=== PATIENT | female | born 1975 | race Caucasian/White ===

== ENCOUNTER 2017-06-08 10:30 | Observation (INO) ==
[2017-06-08] MEDS ORDERED: SODIUM CHLORIDE 0.9% 250 ML IV PRN (12:40)
[2017-06-08 13:14] LABS: Albumin 3.8 G/DL (3.4-5.0); Bilirubin,Total 0.6 MG/DL (0.2-1.0); Calcium 9.1 MG/DL (8.5-10.1); Osmolality,Calculated 273.5 MOS/KG (273-304); Potassium 4.1 MMOL/L (3.5-5.1); Total Protein 7.1 G/DL (6.4-8.3)
[2017-06-08 13:16] LABS: Basophils % 0.5 % (0.0-0.8); Eosinophils # 0.1 10*3/uL (0.0-0.87); Eosinophils % 1.3 % (0.00-10.9); Hematocrit 28.5 VOL% (35.7-47.0); Immature Granulocytes Absolute 0.06 #; Lymphocytes # 1.2 10*3/uL (1.4-4.0); Lymphocytes % 19.4 % (21.3-54.2); Mean Corpuscular Hemoglobin 19 PG (27-34); Mean Corpuscular Volume 71.3 FL (87-102); Mean Platelet Volume 11.4 FL (9.6-12.0); Monocytes # 0.4 10*3/uL (0.11-0.8); Monocytes % 6.5 % (1.7-12.7); Neutrophils # 4.4 10*3/uL (1.4-7.4); Neutrophils % 71.3 % (38.7-73.9); Platelet Count 404 T/CUMM (130-400); Red Cell Distribution Width 25.8 % (9.3-17.3); White Blood Count 6.2 T/CUMM (4-12)
[2017-06-08 13:17] LABS: Hemoglobin 7.4 GM/DL (12.0-16.0)
[2017-06-08 13:30] LABS: Hypochromasia 1+; Ovalocytes Slight
[2017-06-08 13:31] LABS: Giant Platelets Few; Platelet Estimate Increased; Polychromasia Slight
--- NOTE | 2017-06-08 13:50 | XRay Report ---
Chest, 2 views History is preop respiratory screening The heart is mildly enlarged. Moderate scoliosis present with convexity to the right. Chronic or developmental rib changes on the left noted No congestive failure or confluent infiltrate is seen Impression: 1. Mild cardiomegaly 2. Moderate scoliosis PROCEDURE INTERPRETED AT [facility] DEPARTMENT OF RADIOLOGY Final Report Signed by: Dr. Joseline Allen
[2017-06-08 13:58] LABS: Apearance,Urine Slightly Hazy (Clear); Bilirubin,Urine Negative (Negative); Blood, Urine Large mg/dL (Negative); Glucose,Urine (UA) Negative (Negative); Ketones,Urine 20 mg/dL (Negative); Mucus,Urine Few /LPF (Occasional); Nitrite,Urine Negative (Negative); Protein,Urine 100 MG/DL; RBC,Urine 1206 /HPF (0-4); Squamous Epithelial Cell,Urine Occasional /HPF (0-10); Urine Color Yellow (Yellow); Urine Specific Gravity 1.023 (1.001-1.035); Urine Urobilinogen < 2.0 EU/DL (0.2-1.0); WBC,Urine 29 /HPF (0-6)
[2017-06-08] MEDS ORDERED: MEPERIDINE 25 MG/1 ML VIAL IV PRN (23:25)
[2017-06-09 06:21] LABS: Basophils % 0.8 % (0.0-0.8); Eosinophils # 0.1 10*3/uL (0.0-0.87); Eosinophils % 2.3 % (0.00-10.9); Immature Granulocytes Absolute 0.05 #; Lymphocytes # 1.1 10*3/uL (1.4-4.0); Lymphocytes % 21.6 % (21.3-54.2); Mean Corpuscular HGB Conc 29.2 GM/DL (32-36); Mean Corpuscular Hemoglobin 21 PG (27-34); Mean Corpuscular Volume 72.9 FL (87-102); Monocytes # 0.5 10*3/uL (0.11-0.8); Monocytes % 8.7 % (1.7-12.7); Neutrophils # 3.4 10*3/uL (1.4-7.4); Neutrophils % 65.6 % (38.7-73.9); Platelet Count 398 T/CUMM (130-400); Red Blood Count 4.94 MC/CUMM (3.8-5.5); Red Cell Distribution Width 26.5 % (9.3-17.3); White Blood Count 5.2 T/CUMM (4-12)
[2017-06-09 06:23] LABS: Hemoglobin 10.6 GM/DL (12.0-16.0)
[2017-06-09 06:33] LABS: Giant Platelets Few; Hypochromasia 1+; Microcytosis Slight; Ovalocytes Slight; Platelet Estimate Adequate
--- NOTE | 2017-06-09 06:58 | EKG Report ---
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
[2017-06-09] MEDS ORDERED: ONDANSETRON 4 MG/2 ML VIAL IV PRN (07:15)
[2017-06-09] MEDS ORDERED: HYDROmorphone 2 MG/1 ML VIAL IV PRN (07:15)
[2017-06-09] MEDS ORDERED: LACTATED RINGERS 1,000 ML IV SCH ×2 (07:30)
[2017-06-09] MEDS ORDERED: PROPOFOL 200 MG/20 ML VIAL IV ONE (08:00)
[2017-06-09] MEDS ORDERED: KETOROLAC 30 MG/1 ML VIAL ONE (08:00)
[2017-06-09] MEDS ORDERED: DEXAMETHASONE 10 MG/1 ML VIAL ONE (08:00)
[2017-06-09] MEDS ORDERED: LIDOCAINE 2% 5 ML VIAL ONE (08:00)
[2017-06-09] MEDS ORDERED: ONDANSETRON 4 MG/2 ML VIAL ONE ×2 (08:00→09:28)
--- NOTE | 2017-06-09 08:53 | History and Physical Update ---
History and Physical Update - History and Physical H&P was reviewed, the patient examined and there: are no changes in the patients condition since last H&P was completed. - Dictation Physical: refer to scanned H&P - Physical Exam Mental Status: alert and oriented Heart: regular rate and rhythm Lung: clear to auscultation Abdomen: within normal limits Vitals: within normal limits
--- NOTE | 2017-06-09 09:07 | Anesthesia Post-Op ---
Anesthesia Post OP - Post Ansesthetic Evaluation Patient seen in post op: Yes Resp: within normal limits CV: within normal limits Mental: within normal limits Temp: within normal limits [id number]: within normal limits Nausea and Vomiting: within normal limits Pain: within normal limits
--- NOTE | 2017-06-09 09:10 | Operative Note ---
Date of procedure: 06/09/17 Pre-op diagnosis: AUB; thickened endometrium on US; anemia secondary to blood loss Post-op diagnosis: same (+ path pending) Procedure: Hysteroscopy D&C; attempted NovaSure endometrial ablation After informed consent was obtained the patient was taken to the OR where she is placed in supine position. Gen. LMA anesthesia was then administered by members anesthesia Department. The patient was then placed in dorsal lithotomy position in El stirrups and sterilely prepped and draped in usual customary fashion. The bladder was catheterized for urine. A bimanual exam was then performed with no adnexal masses palpated. A weighted speculum was placed in the posterior vaginal vault and the anterior cervix was grasped with a single- tooth tenaculum and cervix was cleansed again with Betadine solution. The uterus was sounded to 11 cm. The MyoSure hysteroscope was then passed through the cervical canal into the uterine cavity under direct visualization using normal saline as the distention medium. The entire uterine cavity was explored. No specific abnormalities were identified except for blood clots in vault and a slightly thickened endometrium. The hysteroscope was then removed. Gentle sharp curettage was then carried out by the usual technique until the usual feel of the endometrium. NovaSure ablation was then attempted by the usual technique, however due to vacuum failure the ablation was only functioning for about 18 seconds. Despite multiple procedures to seal the cervix, I was never able to again maintain the seal. NovaSure device was then removed. Hysteroscope was then replaced into the uterine cavity and some ablation of the cavity was noted. The hysteroscope was then removed. The Vaginal vault was cleared of remaining blood and clots. The anterior cervix was noted to be hemostatic. The patient tolerated procedure well and was transferred to the postanesthesia care unit in stable condition. Anesthesia: other (LMA) Surgeon / Physician: Shilpa Farrar Estimated blood loss: other (100cc) Specimens: other (endometrial and endocervical currettings) Condition: stable Disposition: PACU Results - Labs CBC & BMP: 06/09/17 06:01 06/08/17 12:35 Discharge Plan - Discharge Medications No Action Ferrous Sulfate 325 mg PO TID #90 tablet - Follow Up or Referral - Forms/Instructions
[2017-06-09] MEDS ORDERED: SEVOFLURANE 1 UNIT/15 MINUTE INH ONE (09:12)
[2017-06-09] MEDS ORDERED: fentaNYL 100 MCG/2 ML VIAL ONE (09:12)
[2017-06-09] MEDS ORDERED: MIDAZOLAM 2 MG/2 ML VIAL ONE (09:12)
[2017-06-09] MEDS ORDERED: ACETAMINOPHEN 1,000 MG/100 ML VIAL IV ONE (09:12)
--- NOTE | 2017-06-09 09:12 | Discharge Summary ---
Hospital Course - Hospital Course Hospital Course: Pt admitted with symptomatic anemia with AUB for several weeks and recent Hb of 6.7. She was transfused 3 units pRBCs with Hb coming up to 10.6. She underwent Hysteroscopy, D&C with attempted ablation without complication. She was transferred to in stable condition. Discharge Plan - Discharge Data Disposition: Disch To Home/Self Care Condition at Discharge: Stable Discharge Diet: advance to your usual diet Activity: other (pelvic rest x 2 wks) Hygiene: may shower Weight Bearing at Discharge: full weight bearing Driving: no restrictions (after tomorrow) Contact your physician if you experience:: fever over 101, Difficulty voiding, Redness or swelling, Nausea/Vomiting, Shortness of breath, Bleeding, pain uncontrolled by pain medications - Discharge Medications No Action Ferrous Sulfate 325 mg PO TID #90 tablet - Follow Up or Referral Follow Up: Shilpa Farrar DO [Physician] - (as scheduled) - Forms/Instructions Exam - Constitutional Vitals: Period Temp Pulse Resp BP Sys/Donohue Pulse Ox Last 24 Hr 96.8 F-98.8 F 64-86 18-20 113-140/63-89 96-100 General appearance: normal weight, no acute distress - Head Head exam: Present: normal inspection Discharge Results Procedures and tests throughout hospitalization: Pending Orders 06/08/17 Urine Culture Routine 06/08/17 12:35 Red Blood Cells Leuko Red Routine Type and Screen Routine Labs on day of discharge: Labs from last 24 hours 06/09/17 06/08/17 06/08/17 06:01 13:20 12:35 WBC 5.2 RBC 4.94 D Hgb 10.6 L D Hct 36.0 MCV 72.9 L MCH 21 L MCHC 29.2 L RDW 26.5 H Plt Count 398 MPV 11.0 Neut % (Auto) 65.6 Lymph % (Auto) 21.6 [place] % (Auto) 8.7 Eos % (Auto) 2.3 Baso % (Auto) 0.8 Neut # (Auto) 3.4 Lymph # (Auto) 1.1 L [place] # (Auto) 0.5 Eos # (Auto) 0.1 Baso # (Auto) 0.0 Immature Gran % 1.0 Nucleated RBC % 0.0 Immature Gran # 0.05 Nucleated RBCs # 0.00 Platelet Estimate Adequate Giant Platelets Few Immature Plt Fraction 0.0 Polychromasia Hypochromasia 1+ Microcytosis Slight Ovalocytes Slight Sodium Potassium Chloride Carbon Dioxide Anion Gap BUN Creatinine GFR Calculation BUN/Creatinine Ratio Glucose Calculated Osmolality Calcium Total Bilirubin AST ALT Alkaline Phosphatase Total Protein Albumin Globulin Albumin/Globulin Ratio Serum , Qual Negative Urine Color Yellow Urine Appearance Slightly hazy Urine pH 5.0 Ur Specific [employer] 1.023 Urine Protein 100 Urine Glucose (UA) Negative Urine Ketones 20 Urine Blood Large Urine Nitrate Negative Urine Bilirubin Negative Urine Urobilinogen < 2.0 H Urine Leukocytes Moderate H Urine RBC 1206 Urine WBC 29 Ur Squamous Epith Cells Occasional Urine Mucus Few Ur Culture Indicated? Results to follow Blood Type Antibody Screen Crossmatch 06/08/17 06/08/17 06/08/17 12:35 12:35 12:35 WBC 6.2 RBC 4.00 Hgb 7.4 L Hct 28.5 L MCV 71.3 L MCH 19 L MCHC 26.0 L RDW 25.8 H Plt Count 404 H MPV 11.4 Neut % (Auto) 71.3 Lymph % (Auto) 19.4 L [place] % (Auto) 6.5 Eos % (Auto) 1.3 Baso % (Auto) 0.5 Neut # (Auto) 4.4 Lymph # (Auto) 1.2 L [place] # (Auto) 0.4 Eos # (Auto) 0.1 Baso # (Auto) 0.0 Immature Gran % 1.0 Nucleated RBC % 0.0 Immature Gran # 0.06 Nucleated RBCs # 0.00 Platelet Estimate Increased Giant Platelets Few Immature Plt Fraction 4.8 Polychromasia Slight Hypochromasia 1+ Microcytosis Ovalocytes Slight Sodium 139 Potassium 4.1 Chloride 106 Carbon Dioxide 27 Anion Gap 10.1 BUN 7 Creatinine 0.60 GFR Calculation 118 BUN/Creatinine Ratio 11.00 Glucose 89 Calculated Osmolality 273.5 Calcium 9.1 Total Bilirubin 0.60 AST 10 ALT 11 L Alkaline Phosphatase 37 L Total Protein 7.1 Albumin 3.8 Globulin 3.3 Albumin/Globulin Ratio 1.1 Serum , Qual Urine Color Urine Appearance Urine pH Ur Specific [employer] Urine Protein Urine Glucose (UA) Urine Ketones Urine Blood Urine Nitrate Urine Bilirubin Urine Urobilinogen Urine Leukocytes Urine RBC Urine WBC Ur Squamous Epith Cells Urine Mucus Ur Culture Indicated? Blood Type A POSITIVE Antibody Screen Negative Crossmatch See Detail DS: Provider Date of admission: 06/08/17 11:34 Primary care physician: . No PCP Attending physician on admission: Shilpa Farrar DO Discharging clinician: Shilpa Farrar DO Expected date of discharge: 06/09/17
[2017-06-09] MEDS ORDERED: HYDROmorphone 2 MG/1 ML VIAL ONE (09:28)
[2017-06-09] MEDS ORDERED: IBUPROFEN 800 MG TABLET PO PRN (11:24)
[2017-06-09 11:59] VITALS: BP 127/74
--- NOTE | 2017-06-10 13:18 | Pathology Report from [facility] ---
[facility] ACCESSION # : [id number] PATIENT NAME : Lety Cuevas ORDERING DR : VIGNESH AZUL DO CLINICAL HX: Menorrhagia POST-OP DX: Same SPECIMEN INFO: Endometrial curettings GROSS DESCRIPTION: The specimen is received in formalin labeled LETY CUEVAS /ENDOMETRIAL consists of a 3.5 x 1.5 cm aggregate of hemorrhage tissue and clotted blood, submitted in one cassette. DIAGNOSIS FOR LETY CUEVAS: ENDOMETRIAL, CURETTINGS: Benign weakly proliferative endometrium with glandulostromal breakdown and hemorrhage, consistent with anovulatory pattern. Benign endocervical glands with microglandular hyperplasia. COLLECTED DATE: 06/09/2017 [facility] REPORT DATE: 06/10/2017 ELECTRONICALLY SIGNED BY: Racquel Kaminski M.D. 06/10/2017 - 11:23:35 [facility]
== END 2017-06-09 14:00 | disposition home or self-care (01) ==
LOC: N.OB
PROVIDERS: ADMIT Obstetrics & Gynecology; ATTEND Obstetrics & Gynecology